=== PATIENT | female | born 1960 | race African-American/Black ===

== ENCOUNTER 2024-05-30 12:09 | Emergency (ER) | payer MEDICAID, OTHER ==
[~2024-05-30] VITALS: Ht 170.2 cm; Wt 68.0 kg
[2024-05-30 12:21] VITALS: BP 192/82; PULSE 77; RESP 16; TEMP 98.7; O2SAT 100
[2024-05-30] MEDS ORDERED: IBUP-2028 MT (13:49)
== END 2024-05-30 15:38 | disposition home or self-care (01) ==
LOC: ER 12:09
DX: M79.675 Pain in left toe(s) (principal); Z88.0 Allergy status to penicillin
CPT/HCPCS: 73630; 99283; Z7610

== ENCOUNTER 2025-02-22 11:38 | Emergency (ER) | payer OTHER ==
[~2025-02-22] VITALS: Ht 170.2 cm; Wt 77.0 kg
[~2025-02-22 11:38] MED LIST: IBUP-2028 MT
[2025-02-22] MEDS: ACETAMINOPHEN 325MG TABLET PO ONE (12:15)
[2025-02-22 12:24] VITALS: O2SAT 100
[2025-02-22] MEDS: KETOROLAC 30MG/ML VIAL IM ONE (13:15)
[2025-02-22] MEDS ORDERED: IBUP-2030 MT (13:24)
[2025-02-22 13:35] VITALS: BP 140/66; PULSE 91; RESP 15; TEMP 36.9; O2SAT 100
== END 2025-02-22 13:55 | disposition home or self-care (01) ==
LOC: ER 12:36
DX: M25.562 Pain in left knee (principal); Z88.0 Allergy status to penicillin; Z79.899 Other long term (current) drug therapy
CPT/HCPCS: 73560; 96372; 99283; J1885; Z7610 ×2; A4606